=== PATIENT | male | born 1990 | race Caucasian/White ===

== ENCOUNTER 2021-11-11 20:33 | Emergency (ER) | payer OTHER ==
[2021-11-11 20:42] VITALS: BP 147/89; PULSE 89; TEMP 98.7; BMI 41.2
== END 2021-11-12 01:39 | disposition home or self-care (01) ==
LOC: JER 20:33
DX: U07.1 COVID-19 (principal); M79.10 Myalgia, unspecified site
CPT/HCPCS: 87804; 87807; 99283-25; C9803; U0003; U0005